=== PATIENT | female | born 1990 | race Caucasian/White ===

== ENCOUNTER 2017-10-26 08:33 | Emergency (ER) | payer BC | END 2017-10-26 10:00 | disposition left against medical advice (07) | LOC: UCCORT 08:33 | DX: J02.9 Acute pharyngitis, unspecified (principal); Z53.21 Procedure and treatment not carried out due to patient leaving prior to being seen by health care provider ==

== ENCOUNTER 2018-12-14 08:02 | Emergency (ER) | payer BC, OTHER ==
[2018-12-14 08:31] VITALS: BP 116/75
--- NOTE | 2018-12-14 09:12 | UC ---
Nausea/Vomiting/Diarrhea HPI - HPI Summary HPI Summary: 28-year-old woman comes in with a chief complaint of one day of abdominal cramping and diarrhea. Started yesterday. She had 2 or 3 episodes of loose brown stool. Her abdominal pain was diffuse and cramping and radiated to her back. No fevers no vomiting. Today her stool was more normal. She was still having some cramping this morning but it's almost gone now. Does not have a history of recurrent diarrhea or abdominal pain. No abdominal surgery history. No dysuria. - History of Current Complaint Chief Complaint: UCGI Stated Complaint: NAUSEA,STOMACH ACHE Time Seen by Provider: 12/14/18 08:49 Hx Last Menstrual Period: mirena, spotting on/off Pain Intensity: 2 - Allergies/Home Medications Allergies/Adverse Reactions: Allergies Allergy/AdvReac Type Severity Reaction Status Date / Time No Known Allergies Allergy Verified 12/14/18 08:30 Home Medications: Home Medications medroxyPROGESTERone ACETATE* [DEPO-Provera] 150 mg IM Q90D 12/14/18 [History Confirmed 12/14/18] PMH/Surg Hx/FS Hx/Imm Hx Previously Healthy: Yes - Surgical History Surgical History: None Surgery Procedure, Year, and Place: Denies - Family History Known Family History: Positive: Non-Contributory - Social History Alcohol Use: None Substance Use Type: None Smoking Status (MU): Never Smoked Tobacco Review of Systems All Other Systems Reviewed And Are Negative: Yes Constitutional: Positive: Negative Skin: Positive: Negative Eyes: Positive: Negative ENT: Positive: Negative Respiratory: Positive: Negative Cardiovascular: Positive: Negative Gastrointestinal: Positive: Abdominal Pain, Diarrhea Genitourinary: Positive: Negative Motor: Positive: Negative Neurovascular: Positive: Negative Musculoskeletal: Positive: Negative Neurological: Positive: Negative Psychological: Positive: Negative Is Patient Immunocompromised?: No Physical Exam Triage Information Reviewed: Yes Appearance: Well-Appearing, No Pain Distress, Well-Nourished Vital Signs: Initial Vital Signs Temp 98.3 F 12/14/18 08:26 Pulse 107 12/14/18 08:26 Resp 16 12/14/18 08:26 BP 116/75 12/14/18 08:26 Pulse Ox 100 12/14/18 08:26 Vital Signs Reviewed: Yes Eye Exam: Normal Eyes: Positive: Conjunctiva Clear ENT: Positive: Pharynx normal, TMs normal Neck exam: Normal Neck: Positive: Supple, Nontender Respiratory: Positive: Lungs clear, Normal breath sounds, No respiratory distress Cardiovascular: Positive: RRR Abdominal Exam: Normal Abdomen Description: Positive: Nontender, Soft. Negative: CVA Tenderness (R), CVA Tenderness (L) Musculoskeletal Exam: Normal Musculoskeletal: Positive: Strength Intact, ROM Intact Neurological Exam: Normal Neurological: Positive: Alert, Muscle Tone Normal Psychological Exam: Normal Psychological: Positive: Age Appropriate Behavior Skin Exam: Normal Naus/Vom/Diarrhea Course/Dx - Course Course Of Treatment: Patient's symptoms are improving patient's symptoms are improving. Her abdomen is nontender on examination today. No fevers. She had episodic cramping abdominal pain associated with diarrhea. The diarrhea is also improving today. Overall the plan is to wait and watch because of the improvement. I let the patient know that if she got worse had any focal abdominal pain fevers she needed to get reevaluated again right away. - Differential Dx/Diagnosis Provider Diagnosis: Diarrhea, Abdominal pain Condition At Discharge: Stable Discharge - Sign-Out/Discharge Documenting (check all that apply): Patient Departure All imaging exams completed and their final reports reviewed: No Studies - Discharge Plan Condition: Stable Disposition: HOME Patient Education Materials: Acute Diarrhea (ED), Abdominal Pain (ED) Referrals: Jeronimo Lambert MD [Primary Care Provider] - Additional Instructions: FOLLOW UP WITH YOUR DOCTOR IF NOT COMPLETELY IMPROVED. GET REEVALUATED SOONER FOR ANY WORSENING OF YOUR CONDITION OR ANY QUESTIONS OR CONCERNS. - Billing Disposition and Condition Condition: STABLE Disposition: Home
== END 2018-12-14 09:22 | disposition home or self-care (01) ==
LOC: UCCORT 08:02
DX: R19.7 Diarrhea, unspecified (principal); R10.9 Unspecified abdominal pain
CPT/HCPCS: 99211; G0463

== ENCOUNTER 2019-02-10 15:44 | Emergency (ER) | payer OTHER ==
[2019-02-10 15:54] VITALS: BP 119/67
--- NOTE | 2019-02-10 16:08 | UC ---
UC General HPI - HPI Summary HPI Summary: vaginal discharge with some odor x 2 days. had BV years ago and thinks it may be the same. no fever or abdominal pain. no urinary discomfort. - History of Current Complaint Chief Complaint: UCGU Stated Complaint: PERSONAL Time Seen by Provider: 02/10/19 15:55 Hx Obtained From: Patient Hx Last Menstrual Period: mirena, spotting on/off Onset/Duration: Gradual Onset Timing: Constant Pain Intensity: 0 - Allergy/Home Medications Allergies/Adverse Reactions: Allergies Allergy/AdvReac Type Severity Reaction Status Date / Time No Known Allergies Allergy Verified 02/10/19 15:55 PMH/Surg Hx/FS Hx/Imm Hx Previously Healthy: Yes - Surgical History Surgical History: None Surgery Procedure, Year, and Place: Denies - Family History Known Family History: Positive: Non-Contributory - Social History Alcohol Use: None Substance Use Type: None Smoking Status (MU): Never Smoked Tobacco Review of Systems All Other Systems Reviewed And Are Negative: Yes Constitutional: Negative: Fever, Chills Gastrointestinal: Negative: Abdominal Pain Genitourinary: Positive: Vaginal/Penile Discharge. Negative: Dysuria, Hematuria , Frequency, Urgency, Vaginal/Penile Pain, Ulceration/Lesion, Abnormal Bleeding Physical Exam Triage Information Reviewed: Yes Appearance: Well-Appearing Vital Signs: Initial Vital Signs Temp 97.8 F 02/10/19 15:52 Pulse 81 02/10/19 15:52 Resp 16 02/10/19 15:52 BP 119/67 02/10/19 15:52 Pulse Ox 100 02/10/19 15:52 Vital Signs Reviewed: Yes Eyes: Positive: Conjunctiva Clear Neck: Positive: Supple Respiratory: Positive: Lungs clear, Normal breath sounds Cardiovascular: Positive: RRR, No Murmur Abdomen Description: Positive: Nontender, No Organomegaly, Soft Bowel Sounds: Positive: Present Pelvic Exam: Positive: Other - External exam is normal. Vagina pink with some watery white to light [place] pooled in vault but no odor. Cultures obtained. Bimanual exam is normal. Musculoskeletal: Positive: ROM Intact Neurological: Positive: Alert Psychological: Positive: Age Appropriate Behavior Skin Exam: Normal Diagnostics - Laboratory Lab Results: Affirm and GC/chlamydia testing=pending. Course/Dx - Differential Dx - Multi-Symptom Differential Diagnoses: Other - non toxic. no acute abdomen. will tx for presumptive BV while cultures are pending. - Diagnoses Provider Diagnosis: Vaginitis Discharge - Sign-Out/Discharge Documenting (check all that apply): Patient Departure All imaging exams completed and their final reports reviewed: No Studies - Discharge Plan Condition: Stable Disposition: HOME Prescriptions: metroNIDAZOLE [Flagyl] 500 mg PO BID 7 Days #14 tablet Patient Education Materials: Bacterial Vaginosis (ED) Referrals: Jeronimo Lambert MD [Primary Care Provider] - Additional Instructions: FOLLOW UP IF NOT BETTER IN 7 DAYS OR SOONER IF WORSE. - Billing Disposition and Condition Condition: STABLE Disposition: Home
[2019-02-12 13:53] LABS: Neisseria gonorrhoeae (GC) RNA Negative (Negative)
[2019-02-12 14:08] LABS: Trichomonas vaginalis Result Positive (Negative)
--- NOTE | 2019-02-13 07:18 | UC ---
- Progress Note Progress Note: please call the pt. with her lab results + T. vaginalis she already has Flagyl she may take 4 tabs po x 1 time dose please have her partner bee seen for treatment Course/Dx - Diagnoses Provider Diagnoses: Vaginitis Discharge - Sign-Out/Discharge Documenting (check all that apply): Patient Departure All imaging exams completed and their final reports reviewed: No Studies - Discharge Plan Condition: Stable Disposition: HOME Prescriptions: metroNIDAZOLE [Flagyl] 500 mg PO BID 7 Days #14 tablet Patient Education Materials: Bacterial Vaginosis (ED) Referrals: Ryann Lambert-MD Gerald [Primary Care Provider] - Additional Instructions: FOLLOW UP IF NOT BETTER IN 7 DAYS OR SOONER IF WORSE. - Billing Disposition and Condition Condition: STABLE Disposition: Home
== END 2019-02-10 16:25 | disposition home or self-care (01) ==
LOC: UCCORT 15:44
DX: A18.1 Tuberculosis of genitourinary system (principal)
CPT/HCPCS: 87480; 87491; 87510; 87591; 87661; 99212; G0463

== ENCOUNTER 2019-12-25 08:23 | Emergency (ER) | payer OTHER ==
[2019-12-25 08:32] VITALS: BP 120/62
--- NOTE | 2019-12-25 08:42 | UC ---
Cardiac HPI - HPI Summary HPI Summary: 29 yo with onset of episodes of sometimes sharp/sometimes dull chest pain about one week ago, radiating from the lower sternum to the right chest wall, with no associated shortness of breath. Pain lasts up to 15 minutes but then resolves without intervention. No dizziness, had mild headache several days ago which resolved. Comes this morning due to increase in pain and wanting to ensure that it is not a heart attack. Currently has no pain or shortness of breath. Pain present at night when she is working and increases during the day if her children are squabbling. No hx of hypertension, has never smoked, FH negative for heart disease, unaware of her cholesterol level. Does not exercise aerobically but she walks a lot. Single parent with 3 children at home, sleep currently limited to about 4 hours per day due to current pandemic recommendations. No nausea, vomiting or diarrhea. 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 - Risk Factors Pulmonary Embolism Risk Factors: Negative Cardiac Risk Factors: Negative Atrial Fibrillation: Negative TAD Risk Factors: Negative - Allergy/Home Medications Allergies/Adverse Reactions: Allergies Allergy/AdvReac Type Severity Reaction Status Date / Time No Known Allergies Allergy Verified 12/25/19 08:25 Home Medications: Home Medications medroxyPROGESTERone ACETATE* [DEPO-Provera] 150 mg IM Q90D 12/14/18 [History Confirmed 12/25/19] PMH/Surg Hx/FS Hx/Imm Hx Previously Healthy: Yes - Surgical History Surgical History: None Surgery Procedure, Year, and Place: Denies - Family History Known Family History: Positive: Hypertension - father, Other - father age 60+ of brain aneurysm. Mother living and healthy - Social History Occupation: Employed Full-time Lives: With Family Alcohol Use: None Substance Use Type: None Smoking Status (MU): Never Smoked Tobacco Review of Systems All Other Systems Reviewed And Are Negative: Yes Constitutional: Positive: Negative Skin: Positive: Negative Eyes: Positive: Negative ENT: Positive: Negative Respiratory: Positive: Negative Cardiovascular: Positive: Chest Pain. Negative: Palpitations Gastrointestinal: Positive: Negative, Other - very occasional heartburn, drinks a lot of coffee, but currently not having heartburn Genitourinary: Positive: Negative Motor: Positive: Negative Neurovascular: Positive: Negative Musculoskeletal: Positive: Negative Neurological/Mental Status: Positive: Negative Psychological: Positive: Other - aware of stress of current situation, but denies depression or crippling anxiety Is Patient Immunocompromised?: No Physical Exam Triage Information Reviewed: Yes Appearance: Well-Appearing - Mildly overweight, looks well, speaks easily, No Pain Distress Eye Exam: Normal, Other - KARISHMA, normal fundi Eyes: Positive: Conjunctiva Clear ENT: Positive: Pharynx normal Neck: Positive: Supple, Nontender, No Lymphadenopathy Respiratory Exam: Other - Cannot provoke chest pain with palpation of the sternum, rib cage or thoracic spine. Respiratory: Positive: Lungs clear, Normal breath sounds Cardiovascular: Positive: RRR, No Murmur Abdomen Description: Positive: Nontender, No Organomegaly, Soft Musculoskeletal Exam: Normal Neurological Exam: Normal Neurological: Positive: Alert, Muscle Tone Normal Psychological Exam: Normal Skin Exam: Normal Diagnostics - EKG Cardiac Rate: NL Cardiac Rhythm: Sinus: Normal Ectopy: None ST Segment: Normal - Assessment/Plan Course Of Treatment: Discussed risk factors for heart disease are low, and that hx and EKG are not suggestive of heart disease or PE. Discussed lack of sleep and encouraged trying to carve out time for more rest. Decrease in caffeine advised. - Differential Diagnoses - Chest Pain Differential Diagnosis/HQI/PQRI: ACS, Chest Wall, Lower Respiratory Infection, Pulmonary Embolism - Clinical Impression Provider Diagnosis: Acute reaction to situational stress Discharge ED - Sign-Out/Discharge Documenting (check all that apply): Patient Departure All imaging exams completed and their final reports reviewed: No Studies - Discharge Plan Condition: Stable Disposition: HOME Patient Education Materials: Stress (ED) Referrals: Jeronimo Lambert MD [Primary Care Provider] - Additional Instructions: Your EKG is normal and your symptoms do not suggest heart disease. Acute stress can cause chest pain. At this time, I encourage you to try to find ways to get more sleep, and to decrease caffeine intake. Follow up if you develop worsening shortness of breath or chest pain, or if you find that you have increasing anxiety or mood changes. - Billing Disposition and Condition Condition: STABLE Disposition: Home
== END 2019-12-25 09:14 | disposition home or self-care (01) ==
LOC: UCCORT 08:23
DX: F43.0 Acute stress reaction (principal); R07.89 Other chest pain
CPT/HCPCS: 99211; G0463